=== PATIENT | female | born 1935 | race Caucasian/White ===

== ENCOUNTER 2017-09-28 12:27 | Outpatient (CLI) | payer MEDICARE, OTHER | END 2017-09-28 12:28 | disposition home or self-care (01) | LOC: BICRAD 12:27 | PROVIDERS: ATTEND Internal Medicine Gastroenterology | DX: K59.00 Constipation, unspecified (principal); R14.0 Abdominal distension (gaseous); R63.5 Abnormal weight gain; Z80.0 Family history of malignant neoplasm of digestive organs | CPT/HCPCS: 74019 ==

== ENCOUNTER 2018-03-23 22:48 | Emergency (ER) | payer MEDICARE, OTHER | END 2018-03-23 23:42 | disposition left against medical advice (07) | LOC: ERS 22:48 | DX: Z53.21 Procedure and treatment not carried out due to patient leaving prior to being seen by health care provider (principal) ==

== ENCOUNTER 2020-08-23 10:24 | Outpatient (CLI) | payer MEDICARE, OTHER ==
--- NOTE | 2020-08-23 14:40 | MRI ---
LUMBAR SPINE MRI WITHOUT CONTRAST: 08/23/20 HISTORY: Acute lumbar radiculopathy. Low back pain, radiating down the left and right lower extremity for many months. FINDINGS: Appropriate T1 marrow signal intensity of the lumbar vertebrae. Lumbar spine vertebral body height is maintained. No evidence fracture. No significant STIR hyperintensity to suggest ligamentous injury or vertebral body edema. Appropriate signal intensity of the visualized paraspinal muscles. Multiple T2 hyperintensities in th e left and right renal cortex as well as the left and right renal pelvis suggesting combination of co rtical and parapelvic cysts. Conus medullaris terminates at the mid L1 level. Mild leftward curvature of the lumbar spine is noted . Spondylolisthesis: 2.6 mm of retrolisthesis of L1 upon L2. 1.7 mm of retrolisthesis of L2 upon L3. 1.4 mm of retrolisthesis of L3 upon L4. T12-L1: Disc desiccation with mild loss of disc space height. Broad based disc bulge. Mild central ca nal stenosis. Mild central canal stenosis. Mild to moderate bilateral neural foraminal narrowing. L1-L2: Disc desiccation with moderate loss of disc space height. Broad based disc bulge, ligamentum f lavum thickening, and facet hypertrophy result in moderate central canal stenosis. Moderate to severe right and moderate left neural foraminal narrowing. L2-L3: Disc desiccation with moderate to severe loss of disc space height. Broad based disc bulge, li gamentum flavum thickening, and facet hypertrophy result in mild to moderate central canal stenosis. Moderate right and mild left neural foraminal narrowing. L3-L4: Disc desiccation with mild loss of disc space height. Broad based disc bulge, ligamentum flavu m thickening, and facet hypertrophy result in moderate central canal stenosis. There is right greater than left facet hypertrophy. Small amount of fluid in the right facet joint. Moderate right and mode rate to severe left neural foraminal narrowing. L4-L5: Disc desiccation with mild to moderate loss of disc space height. Broad based disc bulge, liga mentum flavum thickening and facet hypertrophy result in mild central canal stenosis. Mild bilateral neural foraminal narrowing. L5-S1: Disc desiccation with mild loss of disc space height. Broad based disc bulge, ligamentum flavu m thickening and facet hypertrophy result in mild to moderate central canal stenosis. There is fluid in the bilateral facet joints. Moderate bilateral neural foraminal narrowing. IMPRESSION: Multilevel degenerative changes of the lumbar spine as above. POS: [facility]
== END 2020-08-23 10:25 | disposition home or self-care (01) ==
LOC: BICMRI 10:24
PROVIDERS: ATTEND Anesthesiology Pain Medicine
DX: M51.16 Intervertebral disc disorders with radiculopathy, lumbar region (principal); M43.16 Spondylolisthesis, lumbar region; M48.05 Spinal stenosis, thoracolumbar region; M48.061 Spinal stenosis, lumbar region without neurogenic claudication; M24.28 Disorder of ligament, vertebrae; M51.87 Other intervertebral disc disorders, lumbosacral region; M48.07 Spinal stenosis, lumbosacral region
CPT/HCPCS: 72148

== ENCOUNTER 2021-11-10 12:25 | Inpatient (IN) | payer MEDICARE ==
[2021-11-10 12:49] LABS: #Eosinphils 0.1 thou/uL (0.0-0.7); #Lymphocytes 1.3 thou/uL (1.20-3.40); #Monocytes 0.7 thou/uL (0.11-0.59); #Neutrophils 4.5 thou/uL (1.40-6.50); %Basophils 0.4 % (0.0-1.0); %Eosinophils 1.2 % (0.0-10.0); %Lymphocytes 19.8 % (21.0-51.0); %Monocytes 10.9 % (0.0-10.0); %Neutrophils 67.7 % (42.0-75.0); Hemoglobin 12.2 g/dL (12.0-16.0); Mean Corpuscular HGB CONC 32.5 g/dL (32.0-36.0); Mean Corpuscular Hemoglobin 31.6 pg (27.0-31.0); Mean Corpuscular Volume 97.3 fL (78.0-98.0); Mean Platelet Volume 6.8 fL (7.4-10.4); Platelet Count 370 thou/uL (130-400); RBC Distribution Width 15.4 % (11.5-14.5); Red Blood Cell (RBC) Count 3.86 mill/uL (4.20-5.40); White Blood Cell (WBC) Count 6.6 thou/uL (4.8-10.8)
[2021-11-10 13:00] LABS: Bacteria/HPF 4+ HPF (None Seen); Bilirubin Negative (Negative); Blood, Urine Negative (Negative); Clarity Clear (Clear); Glucose, Urine (Dipstick) Normal (Negative); Ketone, Urine Negative (Negative); Leukocyte 250 Leu/uL (Negative); Nitrite Negative (Negative); Protein, Urine (Dipstick) Negative (Neg-Trace); RBC/HPF 0-3 HPF (0-3); Specific Gravity, Urine 1.021 (1.002-1.036); Squamous Epithelial 0-3 HPF (0-3); Urobilinogen Normal mg/dL (Less than 2); WBC/HPF 21-50 HPF (0-3)
[2021-11-10 13:06] LABS: ALT (SGPT) 13 U/L (8-55); AST (SGOT) 21 U/L (5-34); Alkaline Phosphatase 93 U/L (40-110); Anion Gap 16 mmol/L (10-20); BUN (Urea Nitrogen) 28 mg/dL (9.8-20.1); Bilirubin, Total 0.3 mg/dL (0.2-1.2); Calc. Creatinine Clearance 0 mL/min (70-130); Calcium 9.2 mg/dL (7.8-10.44); Carbon Dioxide 19 mmol/L (23-31); Chloride 106 mmol/L (98-107); Globulin 3.2 g/dL (2.4-3.5); Glucose 121 mg/dL (83-110); Lipase 21 U/L (8-78); Magnesium 2.1 mg/dL (1.6-2.6); Potassium 5.3 mmol/L (3.5-5.1); Protein, Total 7.2 g/dL (5.8-8.1); Sodium 136 mmol/L (136-145)
[2021-11-10 13:07] LABS: INR-International Normal Ratio 1.1; PTT 37.9 sec (22.9-36.1); Prothrombin Time 13.8 sec (12.0-14.7)
[2021-11-10 13:27] LABS: Actual Bicarbonate (HCO3a) 23.1 mEq/L (22-28); Analyzer IN Cardio ER; Base Excess (BEa) -1.3 mEq/L (-2.0 to +3.0); CO2 Tension 37.3 mmHg (35.0-45.0); Calcium, Ionized (arterial) 1.17 mmol/L (1.12-1.30); Carboxyhemoglobin (COHb) 0.3 gm% (0.0-3.0); Hemoglobin (Hb) 11.6 g/dL (12.0-16.0); O2 Tension (PaO2), arterial 173.8 mmHg (> 60.0); Potassium - ABG Lab 5.03 mmol/L (3.70-5.30); pH, Arterial 7.41 (7.35-7.45)
[2021-11-10 13:29] LABS: ALV-art Gradient 207.375 mmHg (0-20); Puncture Site RRA
[2021-11-10 13:36] LABS: SARS-CoV-2 NAA Rapid Test Not Detected (NotDetected)
[2021-11-10] MEDS ORDERED: Piperacillin/Tazobactam 3.375 GM VIAL ONE (13:48)
[2021-11-10] MEDS ORDERED: niCARdipine 25 MG/10 ML VIAL ONE (13:49)
[2021-11-10] MEDS ORDERED: Lorazepam 2 MG/ML VIAL ONE (14:05)
[2021-11-10] MEDS ORDERED: Propofol 1,000 MG/100 ML VIAL IV ONE ×2 (14:11→15:25)
[2021-11-10] MEDS ORDERED: Vancomycin 1 GM/200 ML BAG ONE (14:26)
[2021-11-10] MEDS ORDERED: Ondansetron PF 4 MG/2 ML Vial IVP PRN (14:43)
[2021-11-10] MEDS ORDERED: Midazolam In 0.9 % NaCl/PF 100 ML IVPB SCH (14:45)
[2021-11-10] MEDS ORDERED: Ventilator Sedation Protocol 1 EACH FS SCH (14:45)
[2021-11-10] MEDS ORDERED: Norepinephrine 8 MG/0.9% NS 250 ML IVPB PRN (14:57)
[2021-11-10] MEDS ORDERED: Sodium Chloride 0.9% 500 ML IV SCH ×2 (15:00→16:15)
[2021-11-10] MEDS ORDERED: Acetaminophen 650 MG Suppository PR PRN (15:36)
[2021-11-10] MEDS: Sodium Chloride 0.9% 1,000 ML IV SCH ×2 (15:37→22:50)
[2021-11-10] MEDS ORDERED: Morphine 4 MG/ML VIAL SLOW IVP PRN (15:45)
[2021-11-10] MEDS ORDERED: Fentanyl BOLUS 250 ML IVPB PRN (15:45)
[2021-11-10] MEDS ORDERED: DISCONTINUE PREVIOUS NARCOTIC PAIN MEDICATIONS AND BENZODIAZEPINES FS SCH (15:45)
[2021-11-10] MEDS ORDERED: Propofol BOLUS 1,000 MG/100 ML VIAL IV PRN (15:45)
[2021-11-10] MEDS ORDERED: Lorazepam 2 MG/ML VIAL SLOW IVP PRN (15:45)
[2021-11-10] MEDS ORDERED: Piperacillin/Tazobactam 3.375 GM in Sodium Chloride 0.9% 100 ML IVPB SCH (18:00)
[2021-11-10] MEDS: Piperacillin/Tazobactam 3.375 GM in Sodium Chloride 0.9% 100 ML IVPB SCH (18:16)
[2021-11-10] MEDS ORDERED: Famotidine 40 MG/5 ML Oral Suspension PER TUBE SCH (21:00)
[2021-11-11] MEDS: Piperacillin/Tazobactam 3.375 GM in Sodium Chloride 0.9% 100 ML IVPB SCH (01:23)
[2021-11-11 05:08] LABS: #Eosinphils 0.2 thou/uL (0.0-0.7); #Lymphocytes 1.1 thou/uL (1.20-3.40); #Monocytes 1.2 thou/uL (0.11-0.59); #Neutrophils 8.6 thou/uL (1.40-6.50); %Basophils 0.4 % (0.0-1.0); %Eosinophils 1.4 % (0.0-10.0); %Lymphocytes 9.7 % (21.0-51.0); %Monocytes 10.6 % (0.0-10.0); %Neutrophils 77.8 % (42.0-75.0); Hemoglobin 10.7 g/dL (12.0-16.0); Mean Corpuscular HGB CONC 32.6 g/dL (32.0-36.0); Mean Corpuscular Hemoglobin 31.8 pg (27.0-31.0); Mean Corpuscular Volume 97.5 fL (78.0-98.0); Mean Platelet Volume 6.6 fL (7.4-10.4); Platelet Count 355 thou/uL (130-400); RBC Distribution Width 15.3 % (11.5-14.5); Red Blood Cell (RBC) Count 3.37 mill/uL (4.20-5.40)
[2021-11-11 05:33] LABS: Anion Gap 16 mmol/L (10-20); BUN (Urea Nitrogen) 20 mg/dL (9.8-20.1); Calc. Creatinine Clearance 39 mL/min (70-130); Calcium 8.3 mg/dL (7.8-10.44); Carbon Dioxide 16 mmol/L (23-31); Chloride 109 mmol/L (98-107); Glucose 110 mg/dL (83-110); Potassium 5.1 mmol/L (3.5-5.1); Sodium 136 mmol/L (136-145)
[2021-11-11 07:48] LABS: Actual Bicarbonate (HCO3a) 19.9 mEq/L (22-28); Base Excess (BEa) -3.1 mEq/L (-2.0 to +3.0); CO2 Tension 28.5 mmHg (35.0-45.0); Calcium, Ionized (arterial) 1.08 mmol/L (1.12-1.30); Carboxyhemoglobin (COHb) 0.3 gm% (0.0-3.0); Hemoglobin (Hb) 9.3 g/dL (12.0-16.0); O2 Tension (PaO2), arterial 123.9 mmHg (> 60.0); Potassium - ABG Lab 4.06 mmol/L (3.70-5.30); pH, Arterial 7.46 (7.35-7.45)
[2021-11-11 07:49] LABS: Puncture Site LRA
[2021-11-11 07:50] LABS: ALV-art Gradient 125.675 mmHg (0-20)
[2021-11-11] MEDS: Azithromycin 500 MG in Sodium Chloride 0.9% 250 ML 250 ML IVPB SCH (08:48)
[2021-11-11] MEDS: Propofol 1,000 MG/100 ML VIAL IV PRN ×2 (09:00→19:36)
[2021-11-11] MEDS: Aspirin Chewable 81 MG TAB PER TUBE SCH (09:50)
[2021-11-11] MEDS: Cefepime 2 GM in Sodium Chloride 0.9% 100 ML IVPB SCH ×2 (09:50→20:16)
[2021-11-11] MEDS: Escitalopram Oxalate 10 mg Tablet PO SCH (09:51)
[2021-11-11] MEDS: Enoxaparin Sodium 40 MG/0.4 ML SYRINGE SC SCH (09:51)
[2021-11-11] MEDS: Sodium Chloride 0.9% 1,000 ML IV SCH (18:04)
[2021-11-11] MEDS: fentaNYL Citrate-0.9 % NaCl/PF 100 ML IVPB SCH (19:36)
[2021-11-11] MEDS: Famotidine 40 MG/5 ML Oral Suspension PER TUBE SCH (20:58)
[2021-11-12 04:08] LABS: #Eosinphils 0.1 thou/uL (0.0-0.7); #Lymphocytes 0.9 thou/uL (1.20-3.40); #Monocytes 0.6 thou/uL (0.11-0.59); #Neutrophils 6.5 thou/uL (1.40-6.50); %Eosinophils 1.8 % (0.0-10.0); %Lymphocytes 10.8 % (21.0-51.0); %Monocytes 6.8 % (0.0-10.0); %Neutrophils 80.6 % (42.0-75.0); Hemoglobin 8.8 g/dL (12.0-16.0); Mean Corpuscular HGB CONC 33.2 g/dL (32.0-36.0); Mean Corpuscular Hemoglobin 32.2 pg (27.0-31.0); Mean Corpuscular Volume 97.1 fL (78.0-98.0); Mean Platelet Volume 6.5 fL (7.4-10.4); Platelet Count 287 thou/uL (130-400); RBC Distribution Width 14.9 % (11.5-14.5); Red Blood Cell (RBC) Count 2.73 mill/uL (4.20-5.40); White Blood Cell (WBC) Count 8.1 thou/uL (4.8-10.8)
[2021-11-12] MEDS: Sodium Chloride 0.9% 1,000 ML IV SCH ×3 (04:09→13:25)
[2021-11-12] MEDS: Propofol 1,000 MG/100 ML VIAL IV PRN (04:11)
[2021-11-12 04:27] LABS: Anion Gap 10 mmol/L (10-20); BUN (Urea Nitrogen) 15 mg/dL (9.8-20.1); Calc. Creatinine Clearance 42 mL/min (70-130); Calcium 7.9 mg/dL (7.8-10.44); Carbon Dioxide 19 mmol/L (23-31); Chloride 114 mmol/L (98-107); Glucose 129 mg/dL (83-110); Potassium 3.4 mmol/L (3.5-5.1); Sodium 140 mmol/L (136-145)
[2021-11-12] MEDS ORDERED: Sodium Bicarbonate Tab 325 MG TAB PER TUBE PRN (06:30)
[2021-11-12] MEDS ORDERED: Pancrelipase DR 12,000 1 CAP FS PRN (06:30)
[2021-11-12] MEDS: Azithromycin 500 MG in Sodium Chloride 0.9% 250 ML 250 ML IVPB SCH (09:19)
[2021-11-12] MEDS: Enoxaparin Sodium 40 MG/0.4 ML SYRINGE SC SCH (09:37)
[2021-11-12] MEDS: Escitalopram Oxalate 10 mg Tablet PO SCH (09:37)
[2021-11-12] MEDS: Aspirin Chewable 81 MG TAB PER TUBE SCH (09:37)
[2021-11-12] MEDS: Cefepime 2 GM in Sodium Chloride 0.9% 100 ML IVPB SCH (09:37)
[2021-11-12] MEDS: Famotidine 40 MG/5 ML Oral Suspension PER TUBE SCH (20:40)
[2021-11-13] MEDS: Sodium Chloride 0.9% 1,000 ML IV SCH ×2 (00:12→14:33)
[2021-11-13 04:25] LABS: Hemoglobin 8.4 g/dL (12.0-16.0); Mean Corpuscular HGB CONC 32.8 g/dL (32.0-36.0); Mean Corpuscular Hemoglobin 32.2 pg (27.0-31.0); Mean Corpuscular Volume 98.4 fL (78.0-98.0); Mean Platelet Volume 7.3 fL (7.4-10.4); Platelet Count 249 thou/uL (130-400); Red Blood Cell (RBC) Count 2.62 mill/uL (4.20-5.40); White Blood Cell (WBC) Count 7.6 thou/uL (4.8-10.8)
[2021-11-13 05:00] LABS: Anion Gap 13 mmol/L (10-20); BUN (Urea Nitrogen) 19 mg/dL (9.8-20.1); Calc. Creatinine Clearance 45 mL/min (70-130); Calcium 7.7 mg/dL (7.8-10.44); Carbon Dioxide 16 mmol/L (23-31); Chloride 115 mmol/L (98-107); Glucose 112 mg/dL (83-110); Potassium 4.2 mmol/L (3.5-5.1); Sodium 140 mmol/L (136-145)
[2021-11-13 05:29] LABS: Band 1 % (5-11); Eosinophils 3 % (0-10); Lymphocytes 12 % (21-51); MDiff Complete? YES; Monocytes 6 % (0-10); Neutrophil 78 % (42-75)
[2021-11-13] MEDS: Aspirin Chewable 81 MG TAB PER TUBE SCH (08:46)
[2021-11-13] MEDS: Escitalopram Oxalate 10 mg Tablet PO SCH (08:46)
[2021-11-13] MEDS: Enoxaparin Sodium 40 MG/0.4 ML SYRINGE SC SCH (08:46)
[2021-11-13] MEDS: cefTRIAXone\\ROCEPHIN 1 GM in Sodium Chloride 0.9% 100 ML IVPB SCH (08:46)
[2021-11-13] MEDS: fentaNYL Citrate-0.9 % NaCl/PF 100 ML IVPB SCH (18:27)
[2021-11-13] MEDS ORDERED: Dextrose 5 %-0.45 % NaCl 1,000 ML IV SCH (20:15)
[2021-11-13] MEDS: Famotidine 40 MG/5 ML Oral Suspension PER TUBE SCH (20:25)
[2021-11-14 04:25] LABS: #Eosinphils 0.2 thou/uL (0.0-0.7); #Lymphocytes 0.7 thou/uL (1.20-3.40); #Monocytes 0.7 thou/uL (0.11-0.59); #Neutrophils 6.2 thou/uL (1.40-6.50); %Basophils 0.3 % (0.0-1.0); %Lymphocytes 8.6 % (21.0-51.0); %Monocytes 9.1 % (0.0-10.0); %Neutrophils 79.2 % (42.0-75.0); Hemoglobin 8.3 g/dL (12.0-16.0); Mean Corpuscular HGB CONC 31.8 g/dL (32.0-36.0); Mean Corpuscular Hemoglobin 31.4 pg (27.0-31.0); Mean Corpuscular Volume 98.6 fL (78.0-98.0); Platelet Count 279 thou/uL (130-400); RBC Distribution Width 14.8 % (11.5-14.5); Red Blood Cell (RBC) Count 2.64 mill/uL (4.20-5.40); White Blood Cell (WBC) Count 7.9 thou/uL (4.8-10.8)
[2021-11-14 04:47] LABS: Anion Gap 14 mmol/L (10-20); BUN (Urea Nitrogen) 25 mg/dL (9.8-20.1); Calc. Creatinine Clearance 49 mL/min (70-130); Calcium 7.9 mg/dL (7.8-10.44); Carbon Dioxide 17 mmol/L (23-31); Chloride 111 mmol/L (98-107); Glucose 128 mg/dL (83-110); Potassium 3.7 mmol/L (3.5-5.1); Sodium 138 mmol/L (136-145)
[2021-11-14 07:23] LABS: Actual Bicarbonate (HCO3a) 17.6 mEq/L (22-28); Base Excess (BEa) -6.1 mEq/L (-2.0 to +3.0); CO2 Tension 28.7 mmHg (35.0-45.0); Calcium, Ionized (arterial) 1.13 mmol/L (1.12-1.30); Carboxyhemoglobin (COHb) 0.4 gm% (0.0-3.0); Hemoglobin (Hb) 9.7 g/dL (12.0-16.0); O2 Tension (PaO2), arterial 75.3 mmHg (> 60.0); Potassium - ABG Lab 3.99 mmol/L (3.70-5.30); pH, Arterial 7.41 (7.35-7.45)
[2021-11-14 07:36] LABS: Puncture Site RBA
[2021-11-14 07:37] LABS: ALV-art Gradient 102.725 mmHg (0-20)
[2021-11-14] MEDS ORDERED: Furosemide 40 MG/4 ML VIAL SLOW IVP SCH (08:30)
[2021-11-14] MEDS: Enoxaparin Sodium 40 MG/0.4 ML SYRINGE SC SCH (08:53)
[2021-11-14] MEDS: Escitalopram Oxalate 10 mg Tablet PO SCH (08:53)
[2021-11-14] MEDS: Aspirin Chewable 81 MG TAB PER TUBE SCH (08:53)
[2021-11-14] MEDS: cefTRIAXone\\ROCEPHIN 1 GM in Sodium Chloride 0.9% 100 ML IVPB SCH (08:54)
[2021-11-14] MEDS ORDERED: Dexamethasone 10 MG/ML VIAL SLOW IVP SCH (12:54)
[2021-11-14] MEDS: Dexamethasone 4 mg/ml Vial ONE ×2 (13:00→14:51)
[2021-11-14] MEDS ORDERED: Racepinephrine 2.25% 0.5 ML NEB NEB PRN (14:53)
[2021-11-14] MEDS: Famotidine 40 MG/5 ML Oral Suspension PER TUBE SCH (19:24)
[2021-11-14] MEDS: Lorazepam 2 MG/ML VIAL SLOW IVP PRN (19:27)
[2021-11-15] MEDS: Lorazepam 2 MG/ML VIAL SLOW IVP PRN ×2 (02:55→20:15)
[2021-11-15 06:38] LABS: Anion Gap 13 mmol/L (10-20); BUN (Urea Nitrogen) 31 mg/dL (9.8-20.1); Calc. Creatinine Clearance 56 mL/min (70-130); Calcium 8.5 mg/dL (7.8-10.44); Carbon Dioxide 20 mmol/L (23-31); Chloride 107 mmol/L (98-107); Glucose 146 mg/dL (83-110); Potassium 4.2 mmol/L (3.5-5.1); Sodium 136 mmol/L (136-145)
[2021-11-15] MEDS: Sodium Chloride 0.9% 1,000 ML IV SCH (07:49)
[2021-11-15] MEDS: cefTRIAXone\\ROCEPHIN 1 GM in Sodium Chloride 0.9% 100 ML IVPB SCH (08:01)
[2021-11-15] MEDS: Enoxaparin Sodium 40 MG/0.4 ML SYRINGE SC SCH (08:01)
[2021-11-15] MEDS: Escitalopram Oxalate 10 mg Tablet PO SCH (08:14)
[2021-11-15] MEDS: Aspirin Chewable 81 MG TAB PER TUBE SCH (08:14)
[2021-11-15] MEDS ORDERED: Labetalol HCl 100 MG/20 ML VIAL SLOW IVP SCH (12:30)
[2021-11-15] MEDS ORDERED: cloNIDine 0.1mg/24 Hour PATCH TD SCH (13:30)
[2021-11-15] MEDS: Nitroglycerin 2% Ointment 1 INCH/1 GM Packet TOP SCH ×2 (13:36→21:15)
[2021-11-15] MEDS: Famotidine 40 MG/5 ML Oral Suspension PER TUBE SCH (20:18)
[2021-11-15] MEDS ORDERED: Scopolamine 1.5 mg/72 hour Patch TD SCH (21:00)
[2021-11-15] MEDS: Labetalol HCl 100 MG/20 ML VIAL SLOW IVP PRN (21:15)
[2021-11-16] MEDS: Labetalol HCl 100 MG/20 ML VIAL SLOW IVP PRN ×5 (01:55→21:23)
[2021-11-16] MEDS: Sodium Chloride 0.9% 1,000 ML IV SCH (01:59)
[2021-11-16] MEDS: Nitroglycerin 2% Ointment 1 INCH/1 GM Packet TOP SCH ×3 (06:06→21:23)
[2021-11-16 07:28] LABS: #Eosinphils 0.1 thou/uL (0.0-0.7); #Lymphocytes 1.1 thou/uL (1.20-3.40); #Monocytes 0.9 thou/uL (0.11-0.59); #Neutrophils 8.3 thou/uL (1.40-6.50); %Basophils 0.3 % (0.0-1.0); %Eosinophils 0.5 % (0.0-10.0); %Lymphocytes 10.3 % (21.0-51.0); %Monocytes 8.2 % (0.0-10.0); %Neutrophils 80.7 % (42.0-75.0); Hemoglobin 9.3 g/dL (12.0-16.0); Mean Corpuscular HGB CONC 33.9 g/dL (32.0-36.0); Mean Corpuscular Hemoglobin 32.4 pg (27.0-31.0); Mean Corpuscular Volume 95.8 fL (78.0-98.0); Platelet Count 348 thou/uL (130-400); RBC Distribution Width 14.8 % (11.5-14.5); Red Blood Cell (RBC) Count 2.88 mill/uL (4.20-5.40); White Blood Cell (WBC) Count 10.3 thou/uL (4.8-10.8)
[2021-11-16 07:42] LABS: Anion Gap 14 mmol/L (10-20); BUN (Urea Nitrogen) 29 mg/dL (9.8-20.1); Calc. Creatinine Clearance 52 mL/min (70-130); Calcium 8.8 mg/dL (7.8-10.44); Carbon Dioxide 21 mmol/L (23-31); Chloride 111 mmol/L (98-107); Glucose 114 mg/dL (83-110); Potassium 3.8 mmol/L (3.5-5.1); Sodium 142 mmol/L (136-145)
[2021-11-16] MEDS: cefTRIAXone\\ROCEPHIN 1 GM in Sodium Chloride 0.9% 100 ML IVPB SCH (07:46)
[2021-11-16] MEDS: Enoxaparin Sodium 40 MG/0.4 ML SYRINGE SC SCH (07:47)
[2021-11-16] MEDS: Aspirin Chewable 81 MG TAB PER TUBE SCH (07:47)
[2021-11-16] MEDS: Escitalopram Oxalate 10 mg Tablet PO SCH (07:47)
[2021-11-16] MEDS: Lidocaine 5% Patch TD SCH (10:34)
[2021-11-16] MEDS: Transdermal Patch Removal TOP SCH (21:23)
[2021-11-16 21:35] LABS: SARS-CoV-2 PCR by NAA Not Detected (NotDetected)
[2021-11-17] MEDS: Sodium Chloride 0.9% 1,000 ML IV SCH (02:01)
[2021-11-17] MEDS: Labetalol HCl 100 MG/20 ML VIAL SLOW IVP PRN ×2 (02:01→05:37)
[2021-11-17] MEDS: Lorazepam 2 MG/ML VIAL SLOW IVP PRN (02:02)
[2021-11-17] MEDS: Nitroglycerin 2% Ointment 1 INCH/1 GM Packet TOP SCH ×3 (05:36→22:03)
[2021-11-17] MEDS: Aspirin Chewable 81 MG TAB PER TUBE SCH (07:24)
[2021-11-17] MEDS: Escitalopram Oxalate 10 mg Tablet PO SCH (07:24)
[2021-11-17 07:37] LABS: Anion Gap 14 mmol/L (10-20); BUN (Urea Nitrogen) 25 mg/dL (9.8-20.1); Calc. Creatinine Clearance 57 mL/min (70-130); Calcium 8.8 mg/dL (7.8-10.44); Carbon Dioxide 24 mmol/L (23-31); Chloride 109 mmol/L (98-107); Glucose 102 mg/dL (83-110); Potassium 3.7 mmol/L (3.5-5.1); Sodium 143 mmol/L (136-145)
[2021-11-17] MEDS: cefTRIAXone\\ROCEPHIN 1 GM in Sodium Chloride 0.9% 100 ML IVPB SCH (08:28)
[2021-11-17] MEDS: Lidocaine 5% Patch TD SCH (08:28)
[2021-11-17] MEDS: Enoxaparin Sodium 40 MG/0.4 ML SYRINGE SC SCH (08:29)
[2021-11-17] MEDS ORDERED: Pantoprazole 40 MG VIAL IVP SCH (09:00)
[2021-11-17] MEDS ORDERED: Acetaminophen 325 MG TAB PO PRN (13:48)
[2021-11-17] MEDS ORDERED: Lorazepam 2 MG/ML VIAL SLOW IVP PRN (14:35)
[2021-11-17] MEDS ORDERED: Acetaminophen 650 MG/20.3 ML UDCUP PER TUBE PRN (14:41)
[2021-11-17] MEDS ORDERED: Lisinopril 10 MG TAB PER TUBE ONE (21:30)
[2021-11-17] MEDS: Transdermal Patch Removal TOP SCH (22:03)
[2021-11-17] MEDS: cloNIDine 0.1 MG TAB PO PRN (22:04)
[2021-11-18] MEDS: Nitroglycerin 2% Ointment 1 INCH/1 GM Packet TOP SCH ×3 (06:32→21:43)
[2021-11-18] MEDS: cloNIDine 0.1 MG TAB PO PRN (06:33)
[2021-11-18 07:24] LABS: Anion Gap 12 mmol/L (10-20); BUN (Urea Nitrogen) 23 mg/dL (9.8-20.1); Calc. Creatinine Clearance 58 mL/min (70-130); Calcium 8.7 mg/dL (7.8-10.44); Carbon Dioxide 26 mmol/L (23-31); Chloride 105 mmol/L (98-107); Glucose 126 mg/dL (83-110); Potassium 3.5 mmol/L (3.5-5.1); Sodium 139 mmol/L (136-145)
[2021-11-18] MEDS: Aspirin Chewable 81 MG TAB PER TUBE SCH ×2 (09:05→16:22)
[2021-11-18] MEDS: Escitalopram Oxalate 10 mg Tablet PO SCH ×2 (09:05→16:23)
[2021-11-18] MEDS: Enoxaparin Sodium 40 MG/0.4 ML SYRINGE SC SCH (09:05)
[2021-11-18] MEDS ORDERED: Scopolamine 1.5 mg/72 hour Patch TD SCH (21:00)
[2021-11-18] MEDS: Transdermal Patch Removal TOP SCH (21:57)
[2021-11-19] MEDS ORDERED: cloNIDine 0.1mg/24 Hour PATCH TD SCH (03:00)
[2021-11-19] MEDS: Nitroglycerin 2% Ointment 1 INCH/1 GM Packet TOP SCH ×3 (04:31→22:39)
[2021-11-19 06:50] LABS: Anion Gap 15 mmol/L (10-20); BUN (Urea Nitrogen) 18 mg/dL (9.8-20.1); Calc. Creatinine Clearance 54 mL/min (70-130); Calcium 9.3 mg/dL (7.8-10.44); Carbon Dioxide 26 mmol/L (23-31); Chloride 103 mmol/L (98-107); Glucose 108 mg/dL (83-110); Potassium 3.5 mmol/L (3.5-5.1); Sodium 140 mmol/L (136-145)
[2021-11-19] MEDS: Enoxaparin Sodium 40 MG/0.4 ML SYRINGE SC SCH (08:43)
[2021-11-19] MEDS ORDERED: Non-Formulary Item 1 EACH (Mv-Min/Iron/Folic/Calcium/Vitk [Women's Multivitamin Tablet] 1 PO SCH (09:00)
[2021-11-19] MEDS ORDERED: Non-Formulary Item 1 EACH (Mecobalamin [B12 Active] 1,000 MCG Tab.Chew) PO SCH (09:00)
[2021-11-19] MEDS: Lisinopril 5 MG TAB PO SCH (10:20)
[2021-11-19] MEDS: Multivitamin W/ Minerals 1 TAB PO SCH (10:20)
[2021-11-19] MEDS: Metoprolol Tartrate 25 MG TAB PO SCH ×2 (10:20→22:40)
[2021-11-19] MEDS: Escitalopram Oxalate 10 mg Tablet PO SCH ×2 (10:20→22:40)
[2021-11-19] MEDS: Cyanocobalamin (Vitamin B-12) 1,000 MCG TAB PO SCH (10:20)
[2021-11-19] MEDS: Aspirin 81 mg Enteric Coated Tablet PO SCH (10:20)
[2021-11-19] MEDS ORDERED: Acetaminophen 650 MG/20.3 ML UDCUP PO PRN (16:41)
[2021-11-19] MEDS: Acetaminophen 325 MG TAB PO PRN (17:00)
[2021-11-20] MEDS: Transdermal Patch Removal TOP SCH ×2 (00:10→20:57)
[2021-11-20] MEDS: Nitroglycerin 2% Ointment 1 INCH/1 GM Packet TOP SCH ×3 (05:15→20:42)
[2021-11-20 06:21] LABS: Anion Gap 16 mmol/L (10-20); BUN (Urea Nitrogen) 18 mg/dL (9.8-20.1); Calc. Creatinine Clearance 56 mL/min (70-130); Calcium 9.2 mg/dL (7.8-10.44); Carbon Dioxide 29 mmol/L (23-31); Chloride 101 mmol/L (98-107); Glucose 111 mg/dL (83-110); Potassium 3.5 mmol/L (3.5-5.1); Sodium 142 mmol/L (136-145)
[2021-11-20] MEDS: Lisinopril 5 MG TAB PO SCH (10:21)
[2021-11-20] MEDS: Metoprolol Tartrate 25 MG TAB PO SCH ×2 (10:21→20:27)
[2021-11-20] MEDS: Aspirin 81 mg Enteric Coated Tablet PO SCH (10:22)
[2021-11-20] MEDS: Escitalopram Oxalate 10 mg Tablet PO SCH ×2 (10:22→20:27)
[2021-11-20] MEDS: Enoxaparin Sodium 40 MG/0.4 ML SYRINGE SC SCH (10:22)
[2021-11-20] MEDS: Cyanocobalamin (Vitamin B-12) 1,000 MCG TAB PO SCH (11:06)
[2021-11-20] MEDS: Multivitamin W/ Minerals 1 TAB PO SCH (11:07)
[2021-11-20] MEDS: Acetaminophen 325 MG TAB PO PRN (20:41)
[2021-11-21] MEDS: Nitroglycerin 2% Ointment 1 INCH/1 GM Packet TOP SCH ×3 (05:29→20:53)
[2021-11-21 06:00] LABS: Anion Gap 19 mmol/L (10-20); BUN (Urea Nitrogen) 29 mg/dL (9.8-20.1); Calc. Creatinine Clearance 39 mL/min (70-130); Carbon Dioxide 24 mmol/L (23-31); Chloride 102 mmol/L (98-107); Glucose 87 mg/dL (83-110); Potassium 4.6 mmol/L (3.5-5.1); Sodium 140 mmol/L (136-145)
[2021-11-21] MEDS: Aspirin 81 mg Enteric Coated Tablet PO SCH (09:21)
[2021-11-21] MEDS: Escitalopram Oxalate 10 mg Tablet PO SCH ×2 (09:21→20:52)
[2021-11-21] MEDS: Metoprolol Tartrate 25 MG TAB PO SCH ×2 (09:21→20:52)
[2021-11-21] MEDS: Cyanocobalamin (Vitamin B-12) 1,000 MCG TAB PO SCH (09:21)
[2021-11-21] MEDS: Enoxaparin Sodium 40 MG/0.4 ML SYRINGE SC SCH (09:22)
[2021-11-21] MEDS: Multivitamin W/ Minerals 1 TAB PO SCH (09:22)
[2021-11-21] MEDS: Dextrose 5 %-0.45 % NaCl 1,000 ML IV SCH ×2 (11:11→23:00)
[2021-11-21] MEDS: Transdermal Patch Removal TOP SCH (23:00)
[2021-11-22] MEDS: Nitroglycerin 2% Ointment 1 INCH/1 GM Packet TOP SCH ×3 (06:12→21:08)
[2021-11-22 07:04] LABS: Anion Gap 16 mmol/L (10-20); BUN (Urea Nitrogen) 22 mg/dL (9.8-20.1); Calc. Creatinine Clearance 41 mL/min (70-130); Calcium 8.8 mg/dL (7.8-10.44); Carbon Dioxide 25 mmol/L (23-31); Chloride 102 mmol/L (98-107); Glucose 124 mg/dL (83-110); Potassium 3.7 mmol/L (3.5-5.1); Sodium 139 mmol/L (136-145)
[2021-11-22] MEDS ORDERED: cloNIDine 0.1mg/24 Hour PATCH TD SCH (09:00)
[2021-11-22] MEDS: Aspirin 81 mg Enteric Coated Tablet PO SCH (09:04)
[2021-11-22] MEDS: Enoxaparin Sodium 40 MG/0.4 ML SYRINGE SC SCH (09:04)
[2021-11-22] MEDS: Escitalopram Oxalate 10 mg Tablet PO SCH ×2 (09:04→21:07)
[2021-11-22] MEDS: Cyanocobalamin (Vitamin B-12) 1,000 MCG TAB PO SCH (09:04)
[2021-11-22] MEDS: Multivitamin W/ Minerals 1 TAB PO SCH (09:04)
[2021-11-22] MEDS: Metoprolol Tartrate 25 MG TAB PO SCH ×2 (09:04→21:07)
[2021-11-22] MEDS: Dextrose 5 %-0.45 % NaCl 1,000 ML IV SCH ×2 (12:57→23:18)
[2021-11-22] MEDS: Transdermal Patch Removal TOP SCH (22:18)
[2021-11-23] MEDS: Melatonin 3 MG TAB PO PRN ×2 (00:26→21:21)
[2021-11-23] MEDS: Nitroglycerin 2% Ointment 1 INCH/1 GM Packet TOP SCH ×3 (05:10→21:32)
[2021-11-23 07:36] LABS: Anion Gap 15 mmol/L (10-20); BUN (Urea Nitrogen) 15 mg/dL (9.8-20.1); Calc. Creatinine Clearance 48 mL/min (70-130); Calcium 9.1 mg/dL (7.8-10.44); Carbon Dioxide 26 mmol/L (23-31); Chloride 103 mmol/L (98-107); Glucose 119 mg/dL (83-110); Potassium 3.2 mmol/L (3.5-5.1); Sodium 141 mmol/L (136-145)
[2021-11-23] MEDS: Cyanocobalamin (Vitamin B-12) 1,000 MCG TAB PO SCH (09:23)
[2021-11-23] MEDS: Enoxaparin Sodium 40 MG/0.4 ML SYRINGE SC SCH (09:24)
[2021-11-23] MEDS: Metoprolol Tartrate 25 MG TAB PO SCH (09:24)
[2021-11-23] MEDS: Multivitamin W/ Minerals 1 TAB PO SCH (09:24)
[2021-11-23] MEDS: Escitalopram Oxalate 10 mg Tablet PO SCH ×2 (09:24→21:22)
[2021-11-23] MEDS: Aspirin Chewable 81 MG TAB PO SCH (09:34)
[2021-11-23] MEDS: Aspirin 81 mg Enteric Coated Tablet PO SCH (09:39)
[2021-11-23] MEDS ORDERED: hydrALAZINE 25 MG TAB PO SCH ×2 (10:15→15:00)
[2021-11-23] MEDS: Dextrose 5 %-0.45 % NaCl 1,000 ML IV SCH (10:40)
[2021-11-23 16:07] LABS: SARS-CoV-2 PCR by NAA Not Detected (NotDetected)
[2021-11-23] MEDS ORDERED: Dextrose 5 %-0.45 % NaCl 1,000 ML IV SCH (17:00)
[2021-11-23] MEDS ORDERED: Potassium Chloride 20 MEQ in Premix Bag 1 BAG IVPB SCH (17:00)
[2021-11-23] MEDS ORDERED: Amlodipine 10 MG TAB PO SCH (17:00)
[2021-11-23] MEDS ORDERED: Potassium Chloride 20 MEQ TAB PO SCH (17:00)
[2021-11-23] MEDS ORDERED: Metoprolol Tartrate 50 MG TAB PO SCH (21:00)
[2021-11-23] MEDS: hydrALAZINE 25 MG TAB PO SCH (21:21)
[2021-11-23] MEDS: Acetaminophen 325 MG TAB PO PRN (21:22)
[2021-11-23] MEDS: Transdermal Patch Removal TOP SCH (21:24)
[2021-11-24] MEDS: Nitroglycerin 2% Ointment 1 INCH/1 GM Packet TOP SCH ×3 (05:42→20:37)
[2021-11-24 06:04] LABS: Anion Gap 14 mmol/L (10-20); BUN (Urea Nitrogen) 14 mg/dL (9.8-20.1); Calc. Creatinine Clearance 46 mL/min (70-130); Calcium 8.7 mg/dL (7.8-10.44); Carbon Dioxide 26 mmol/L (23-31); Chloride 104 mmol/L (98-107); Glucose 115 mg/dL (83-110); Magnesium 1.7 mg/dL (1.6-2.6); Potassium 3.8 mmol/L (3.5-5.1); Sodium 140 mmol/L (136-145)
[2021-11-24] MEDS: Metoprolol Tartrate 50 MG TAB PO SCH ×2 (08:55→20:30)
[2021-11-24] MEDS: Enoxaparin Sodium 40 MG/0.4 ML SYRINGE SC SCH (08:56)
[2021-11-24] MEDS: Escitalopram Oxalate 10 mg Tablet PO SCH ×2 (08:56→20:31)
[2021-11-24] MEDS: Multivitamin W/ Minerals 1 TAB PO SCH (08:56)
[2021-11-24] MEDS: Aspirin Chewable 81 MG TAB PO SCH (08:56)
[2021-11-24] MEDS: Cyanocobalamin (Vitamin B-12) 1,000 MCG TAB PO SCH (08:56)
[2021-11-24] MEDS: hydrALAZINE 25 MG TAB PO SCH ×3 (08:56→20:30)
[2021-11-24] MEDS: Lansoprazole 3 MG/ML ORAL SUSPENSION PER TUBE SCH (11:59)
[2021-11-24] MEDS: Melatonin 3 MG TAB PO PRN (20:31)
[2021-11-24] MEDS: Transdermal Patch Removal TOP SCH (20:41)
[2021-11-25] MEDS: Nitroglycerin 2% Ointment 1 INCH/1 GM Packet TOP SCH ×3 (05:16→20:54)
[2021-11-25 06:41] LABS: Anion Gap 14 mmol/L (10-20); BUN (Urea Nitrogen) 16 mg/dL (9.8-20.1); Calc. Creatinine Clearance 44 mL/min (70-130); Carbon Dioxide 27 mmol/L (23-31); Chloride 104 mmol/L (98-107); Glucose 114 mg/dL (83-110); Potassium 3.6 mmol/L (3.5-5.1); Sodium 141 mmol/L (136-145)
[2021-11-25] MEDS: hydrALAZINE 25 MG TAB PO SCH ×3 (08:02→20:53)
[2021-11-25] MEDS: Escitalopram Oxalate 10 mg Tablet PO SCH ×2 (08:03→20:53)
[2021-11-25] MEDS: Multivitamin W/ Minerals 1 TAB PO SCH (08:03)
[2021-11-25] MEDS: Cyanocobalamin (Vitamin B-12) 1,000 MCG TAB PO SCH (08:03)
[2021-11-25] MEDS: Metoprolol Tartrate 50 MG TAB PO SCH ×2 (08:03→20:53)
[2021-11-25] MEDS: Aspirin Chewable 81 MG TAB PO SCH (08:03)
[2021-11-25] MEDS: Lansoprazole 3 MG/ML ORAL SUSPENSION PER TUBE SCH (08:03)
[2021-11-25] MEDS: Enoxaparin Sodium 40 MG/0.4 ML SYRINGE SC SCH (08:04)
[2021-11-25] MEDS ORDERED: NIFEdipine XL 60 MG TAB PO SCH (12:45)
[2021-11-25] MEDS ORDERED: Amlodipine 10 MG TAB PO SCH (16:45)
[2021-11-25] MEDS: Transdermal Patch Removal TOP SCH (20:54)
[2021-11-26] MEDS: Nitroglycerin 2% Ointment 1 INCH/1 GM Packet TOP SCH ×3 (05:04→21:23)
[2021-11-26 06:13] LABS: Hemoglobin 9.5 g/dL (12.0-16.0); Platelet Count 562 thou/uL (130-400)
[2021-11-26 06:41] LABS: Anion Gap 16 mmol/L (10-20); BUN (Urea Nitrogen) 14 mg/dL (9.8-20.1); Calc. Creatinine Clearance 43 mL/min (70-130); Calcium 9.1 mg/dL (7.8-10.44); Carbon Dioxide 27 mmol/L (23-31); Chloride 103 mmol/L (98-107); Glucose 104 mg/dL (83-110); Potassium 3.6 mmol/L (3.5-5.1); Sodium 142 mmol/L (136-145)
[2021-11-26] MEDS ORDERED: NIFEdipine XL 90 MG TAB PO SCH (09:00)
[2021-11-26] MEDS ORDERED: cloNIDine 0.2mg/24 Hour PATCH TD SCH (09:00)
[2021-11-26] MEDS: Escitalopram Oxalate 10 mg Tablet PO SCH ×2 (09:03→21:23)
[2021-11-26] MEDS: Multivitamin W/ Minerals 1 TAB PO SCH (09:03)
[2021-11-26] MEDS: Cyanocobalamin (Vitamin B-12) 1,000 MCG TAB PO SCH (09:03)
[2021-11-26] MEDS: hydrALAZINE 25 MG TAB PO SCH ×3 (09:03→21:22)
[2021-11-26] MEDS: Aspirin Chewable 81 MG TAB PO SCH (09:03)
[2021-11-26] MEDS: Enoxaparin Sodium 40 MG/0.4 ML SYRINGE SC SCH (09:04)
[2021-11-26] MEDS: Lansoprazole 3 MG/ML ORAL SUSPENSION PER TUBE SCH (09:04)
[2021-11-26] MEDS: Amlodipine 10 MG TAB PO SCH (09:04)
[2021-11-26] MEDS: Metoprolol Tartrate 50 MG TAB PO SCH (09:04)
[2021-11-26] MEDS ORDERED: Minoxidil 2.5 MG TAB PO SCH (09:30)
[2021-11-26 14:54] VITALS: BMI 33.0
[2021-11-26 20:23] VITALS: TEMP 98.1
[2021-11-26] MEDS: Transdermal Patch Removal TOP SCH (21:23)
[2021-11-27] MEDS: Nitroglycerin 2% Ointment 1 INCH/1 GM Packet TOP SCH ×2 (05:30→14:03)
[2021-11-27 07:37] LABS: Anion Gap 14 mmol/L (10-20); BUN (Urea Nitrogen) 16 mg/dL (9.8-20.1); Calc. Creatinine Clearance 45 mL/min (70-130); Calcium 9.1 mg/dL (7.8-10.44); Carbon Dioxide 29 mmol/L (23-31); Chloride 102 mmol/L (98-107); Glucose 91 mg/dL (83-110); Potassium 3.8 mmol/L (3.5-5.1); Sodium 141 mmol/L (136-145)
[2021-11-27] MEDS ORDERED: Minoxidil 2.5 MG TAB PO SCH (09:00)
[2021-11-27] MEDS: Aspirin Chewable 81 MG TAB PO SCH (09:26)
[2021-11-27] MEDS: hydrALAZINE 25 MG TAB PO SCH ×2 (09:26→14:04)
[2021-11-27] MEDS: Escitalopram Oxalate 10 mg Tablet PO SCH (09:26)
[2021-11-27] MEDS: Cyanocobalamin (Vitamin B-12) 1,000 MCG TAB PO SCH (09:26)
[2021-11-27] MEDS: Enoxaparin Sodium 40 MG/0.4 ML SYRINGE SC SCH (09:26)
[2021-11-27] MEDS: Amlodipine 10 MG TAB PO SCH (09:26)
[2021-11-27] MEDS: Multivitamin W/ Minerals 1 TAB PO SCH (09:27)
[2021-11-27] MEDS: Lansoprazole 3 MG/ML ORAL SUSPENSION PER TUBE SCH (09:27)
[2021-11-27 14:07] VITALS: BP 127/60
== END 2021-11-27 15:38 | DRG 871 ==
LOC: ERS 12:25 → CCU 14:06 → T4-B 11-15 12:07
PROVIDERS: ADMIT Internal Medicine; ATTEND Internal Medicine
PROC: 5A1945Z Respiratory Ventilation, 24-96 Consecutive Hours (ICD-10-PCS; principal; 2021-11-10)
PROC: 0BH17EZ Insertion of Endotracheal Airway into Trachea, Via Natural or Artificial Opening (ICD-10-PCS; 2021-11-10)
PROC: 3E033XZ Introduction of Vasopressor into Peripheral Vein, Percutaneous Approach (ICD-10-PCS; 2021-11-10)
PROC: 3E03329 Introduction of Other Anti-infective into Peripheral Vein, Percutaneous Approach (ICD-10-PCS; 2021-11-10)
PROC: 0DH67UZ Insertion of Feeding Device into Stomach, Via Natural or Artificial Opening (ICD-10-PCS; 2021-11-10)
DX: A41.9 Sepsis, unspecified organism (principal); J69.0 Pneumonitis due to inhalation of food and vomit; G93.41 Metabolic encephalopathy; J96.01 Acute respiratory failure with hypoxia; R65.21 Severe sepsis with septic shock; J18.9 Pneumonia, unspecified organism; N17.9 Acute kidney failure, unspecified; E87.2 Acidosis; N30.00 Acute cystitis without hematuria; Z20.822 Contact with and (suspected) exposure to COVID-19; Z66 Do not resuscitate; F32.A Depression, unspecified; M54.9 Dorsalgia, unspecified; G89.29 Other chronic pain; M19.90 Unspecified osteoarthritis, unspecified site; E87.5 Hyperkalemia; E53.8 Deficiency of other specified B group vitamins; I12.9 Hypertensive chronic kidney disease with stage 1 through stage 4 chronic kidney disease, or unspecified chronic kidney disease; N18.30 Chronic kidney disease, stage 3 unspecified; B96.20 Unspecified Escherichia coli [E. coli] as the cause of diseases classified elsewhere; Z96.643 Presence of artificial hip joint, bilateral; E87.70 Fluid overload, unspecified; Z96.651 Presence of right artificial knee joint; E87.8 Other disorders of electrolyte and fluid balance, not elsewhere classified; Z88.5 Allergy status to narcotic agent; Z79.899 Other long term (current) drug therapy; Z78.1 Physical restraint status; Z79.82 Long term (current) use of aspirin; Z82.49 Family history of ischemic heart disease and other diseases of the circulatory system; Z83.6 Family history of other diseases of the respiratory system; Z81.8 Family history of other mental and behavioral disorders; Z98.890 Other specified postprocedural states
CPT/HCPCS: 31500; 36415; 36416; 36600; 51702; 70450; 70496; 70498; 70551; 71045; 74018; 74230; 80048; 80053; 81003; 81015; 82805; 83605; 83690; 83735; 83880; 84443; 84484; 85014; 85018; 85025; 85049; 85610; 85730; 87040; 87077; 87086; 87186; 93005; 94002; 94003; 94640; 96374; 96375; 96376; C9113; J0456; J0692; J0696; J1100; J1650; J1940; J2060; J2543; J2704; J3370; J3490; J7030; J7042; J7050; J7620; U0003; U0005

== ENCOUNTER 2022-03-02 07:03 | Inpatient (IN) | payer MEDICARE ==
[2022-03-02 08:12] LABS: #Basophils 0.1 thou/uL (0.0-0.2); #Eosinphils 0.1 thou/uL (0.0-0.7); #Lymphocytes 1.6 thou/uL (1.20-3.40); #Monocytes 0.6 thou/uL (0.11-0.59); #Neutrophils 7.6 thou/uL (1.40-6.50); %Basophils 0.6 % (0.0-1.0); %Eosinophils 0.9 % (0.0-10.0); %Lymphocytes 16.2 % (21.0-51.0); %Monocytes 6.2 % (0.0-10.0); %Neutrophils 76.2 % (42.0-75.0); Hemoglobin 11.4 g/dL (12.0-16.0); Mean Corpuscular HGB CONC 32.2 g/dL (32.0-36.0); Mean Corpuscular Volume 96.3 fL (78.0-98.0); Mean Platelet Volume 6.4 fL (7.4-10.4); Platelet Count 412 thou/uL (130-400); RBC Distribution Width 13.4 % (11.5-14.5); Red Blood Cell (RBC) Count 3.68 mill/uL (4.20-5.40)
[2022-03-02] MEDS ORDERED: Lorazepam (BATCHED) 2 MG/ML SYR ONE (08:19)
[2022-03-02 08:35] LABS: ALT (SGPT) 9 U/L (8-55); AST (SGOT) 13 U/L (5-34); Albumin 3.9 g/dL (3.4-4.8); Alkaline Phosphatase 98 U/L (40-110); Anion Gap 18 mmol/L (10-20); BUN (Urea Nitrogen) 25 mg/dL (9.8-20.1); Bilirubin, Total 0.3 mg/dL (0.2-1.2); Calc. Creatinine Clearance 0 mL/min (70-130); Calcium 9.1 mg/dL (7.8-10.44); Carbon Dioxide 20 mmol/L (23-31); Chloride 106 mmol/L (98-107); Estimated GFR 36; Globulin 3.3 g/dL (2.4-3.5); Glucose 106 mg/dL (83-110); Lipase 21 U/L (8-78); Potassium 3.7 mmol/L (3.5-5.1); Protein, Total 7.2 g/dL (5.8-8.1); Sodium 140 mmol/L (136-145)
[2022-03-02 09:32] LABS: Bilirubin Negative (Negative); Blood, Urine Negative (Negative); Clarity Clear (Clear); Glucose, Urine (Dipstick) Normal (Negative); Ketone, Urine Negative (Negative); Leukocyte Negative Leu/uL (Negative); Nitrite Negative (Negative); Protein, Urine (Dipstick) Negative (Neg-Trace); Specific Gravity, Urine 1.014 (1.002-1.036); Urobilinogen Normal mg/dL (Less than 2)
[2022-03-02] MEDS ORDERED: Acetaminophen 500 MG TAB ONE (10:07)
[2022-03-02] MEDS ORDERED: Aspirin Chewable 81 MG TAB ONE (10:07)
[2022-03-02] MEDS ORDERED: Cefepime 2 GM VIAL ONE (10:08)
[2022-03-02] MEDS ORDERED: Acetaminophen 325 MG TAB PO PRN (10:53)
[2022-03-02] MEDS ORDERED: Ondansetron PF 4 MG/2 ML Vial IVP PRN (10:53)
[2022-03-02 11:22] LABS: Troponin I Less than 0.010 ng/mL (< 0.028)
[2022-03-02 12:33] LABS: SARS-CoV-2 NAA Rapid Test Not Detected (NotDetected)
[2022-03-02 13:42] VITALS: BMI 30.5
[2022-03-02] MEDS ORDERED: Docusate 100 MG CAP PO PRN (14:13)
[2022-03-02] MEDS ORDERED: Polyethylene Glycol 3350 17 GM Packet PO PRN (14:13)
[2022-03-02 14:57] LABS: Troponin I 0.012 ng/mL (< 0.028)
[2022-03-02] MEDS: hydrALAZINE 25 MG TAB PO SCH ×2 (15:27→21:14)
[2022-03-02] MEDS ORDERED: Iopamidol-370 76% 500 ML 1 ML ONE (15:35)
[2022-03-02 17:06] LABS: Hemoglobin 10.3 g/dL (12.0-16.0)
[2022-03-02] MEDS: Famotidine 20 MG TAB PO SCH (21:14)
[2022-03-02] MEDS: Escitalopram Oxalate 10 mg Tablet PO SCH (21:14)
[2022-03-03] MEDS ORDERED: hydrALAZINE 20 MG/ML VIAL SLOW IVP PRN ×2 (03:30→03:31)
[2022-03-03 04:22] LABS: #Eosinphils 0.1 thou/uL (0.0-0.7); #Lymphocytes 1.5 thou/uL (1.20-3.40); #Monocytes 0.6 thou/uL (0.11-0.59); #Neutrophils 5.4 thou/uL (1.40-6.50); %Basophils 0.3 % (0.0-1.0); %Eosinophils 1.7 % (0.0-10.0); %Lymphocytes 19.4 % (21.0-51.0); %Monocytes 8.2 % (0.0-10.0); %Neutrophils 70.3 % (42.0-75.0); Hemoglobin 11.5 g/dL (12.0-16.0); Mean Corpuscular HGB CONC 31.8 g/dL (32.0-36.0); Mean Corpuscular Hemoglobin 30.8 pg (27.0-31.0); Mean Corpuscular Volume 96.8 fL (78.0-98.0); Mean Platelet Volume 6.6 fL (7.4-10.4); Platelet Count 357 thou/uL (130-400); RBC Distribution Width 13.7 % (11.5-14.5); Red Blood Cell (RBC) Count 3.74 mill/uL (4.20-5.40); White Blood Cell (WBC) Count 7.7 thou/uL (4.8-10.8)
[2022-03-03 04:35] LABS: Anion Gap 16 mmol/L (10-20); BUN (Urea Nitrogen) 22 mg/dL (9.8-20.1); Calc. Creatinine Clearance 35 mL/min (70-130); Calcium 9.3 mg/dL (7.8-10.44); Carbon Dioxide 18 mmol/L (23-31); Chloride 107 mmol/L (98-107); Estimated GFR 35; Glucose 93 mg/dL (83-110); Sodium 136 mmol/L (136-145)
[2022-03-03] MEDS: Famotidine 20 MG TAB PO SCH (08:52)
[2022-03-03] MEDS: hydrALAZINE 25 MG TAB PO SCH ×3 (08:52→20:50)
[2022-03-03] MEDS: Escitalopram Oxalate 10 mg Tablet PO SCH ×2 (08:52→20:50)
[2022-03-03] MEDS: Amlodipine 10 MG TAB PO SCH (08:52)
[2022-03-03] MEDS ORDERED: Enoxaparin Sodium 40 MG/0.4 ML SYRINGE SC SCH (09:00)
[2022-03-03] MEDS ORDERED: Aspirin 81 mg Enteric Coated Tablet PO SCH (09:00)
[2022-03-03] MEDS: Polyethylene Glycol 3350 17 GM Packet PO SCH (20:49)
[2022-03-03] MEDS ORDERED: Saccharomyces boulardii 250 MG CAP PO SCH (21:00)
[2022-03-03] MEDS ORDERED: Bisacodyl 10 MG SUPP PR SCH (21:00)
[2022-03-04 04:56] LABS: #Eosinphils 0.2 thou/uL (0.0-0.7); #Lymphocytes 1.2 thou/uL (1.20-3.40); #Monocytes 0.7 thou/uL (0.11-0.59); %Basophils 0.1 % (0.0-1.0); %Eosinophils 1.9 % (0.0-10.0); %Lymphocytes 12.7 % (21.0-51.0); %Neutrophils 77.3 % (42.0-75.0); Hemoglobin 11.4 g/dL (12.0-16.0); Mean Corpuscular HGB CONC 32.6 g/dL (32.0-36.0); Mean Corpuscular Hemoglobin 31.2 pg (27.0-31.0); Mean Corpuscular Volume 95.7 fL (78.0-98.0); Mean Platelet Volume 6.5 fL (7.4-10.4); Platelet Count 356 thou/uL (130-400); RBC Distribution Width 13.8 % (11.5-14.5); Red Blood Cell (RBC) Count 3.65 mill/uL (4.20-5.40)
[2022-03-04 05:04] LABS: Anion Gap 17 mmol/L (10-20); BUN (Urea Nitrogen) 27 mg/dL (9.8-20.1); CRP (Inflammatory) 0.56 mg/dL (= or < 0.5); Calc. Creatinine Clearance 29 mL/min (70-130); Calcium 9.3 mg/dL (7.8-10.44); Carbon Dioxide 17 mmol/L (23-31); Chloride 105 mmol/L (98-107); Estimated GFR 28; Glucose 106 mg/dL (83-110); Magnesium 1.9 mg/dL (1.6-2.6); Potassium 4.5 mmol/L (3.5-5.1); Sodium 134 mmol/L (136-145)
[2022-03-04] MEDS: hydrALAZINE 25 MG TAB PO SCH ×2 (08:39→15:07)
[2022-03-04] MEDS: Amlodipine 10 MG TAB PO SCH (08:39)
[2022-03-04] MEDS: Escitalopram Oxalate 10 mg Tablet PO SCH (08:40)
[2022-03-04] MEDS: Polyethylene Glycol 3350 17 GM Packet PO SCH (08:40)
[2022-03-04] MEDS ORDERED: Famotidine 20 MG TAB PO SCH (09:00)
[2022-03-04] MEDS ORDERED: Enoxaparin Sodium 30 MG/0.3 ML SYRINGE SC SCH (09:00)
[2022-03-04] MEDS ORDERED: Electrolyte Replacement Protocol 1 EACH FS SCH (10:00)
[2022-03-04] MEDS ORDERED: Aspirin 81 mg Enteric Coated Tablet PO SCH (10:00)
[2022-03-04] MEDS ORDERED: Sodium Chloride 0.9% 1,000 ML IV SCH (10:00)
[2022-03-04 10:34] LABS: Lactic Acid 2.6 mmol/L (0.5-2.2)
[2022-03-04] MEDS ORDERED: Magnesium 2 GM/50 ML(in water) 2 GM in Premix Bag 1 BAG IVPB SCH (12:00)
[2022-03-04 12:47] VITALS: TEMP 97.5
[2022-03-04] MEDS ORDERED: metroNIDAZOLE 500 MG in Premix Bag 1 BAG IVPB SCH (14:00)
[2022-03-04 15:09] VITALS: BP 165/75
[2022-03-04] MEDS ORDERED: Heparin 5,000 UNITS/ML VIAL SC SCH (21:00)
[2022-03-05] MEDS ORDERED: Polyethylene Glycol 3350 17 GM Packet PO SCH (09:00)
[2022-03-09] MEDS ORDERED: cloNIDine 0.2mg/24 Hour PATCH TD SCH (09:00)
== END 2022-03-04 16:09 | disposition left against medical advice (07) | DRG 204 ==
LOC: ERS 07:03 → 2NO 10:21
PROVIDERS: ADMIT Internal Medicine; ATTEND Internal Medicine
DX: R06.02 Shortness of breath (principal); Z66 Do not resuscitate; Z20.822 Contact with and (suspected) exposure to COVID-19; N17.9 Acute kidney failure, unspecified; E87.2 Acidosis; R10.9 Unspecified abdominal pain; G89.29 Other chronic pain; M54.9 Dorsalgia, unspecified; I12.9 Hypertensive chronic kidney disease with stage 1 through stage 4 chronic kidney disease, or unspecified chronic kidney disease; N18.30 Chronic kidney disease, stage 3 unspecified; E86.0 Dehydration; D53.9 Nutritional anemia, unspecified; M19.90 Unspecified osteoarthritis, unspecified site; Z96.643 Presence of artificial hip joint, bilateral; Z96.651 Presence of right artificial knee joint; R19.5 Other fecal abnormalities; M47.819 Spondylosis without myelopathy or radiculopathy, site unspecified; E66.9 Obesity, unspecified; F41.9 Anxiety disorder, unspecified; T45.4X5A Adverse effect of iron and its compounds, initial encounter; Z53.29 Procedure and treatment not carried out because of patient's decision for other reasons; Z68.30 Body mass index [BMI] 30.0-30.9, adult; Z88.6 Allergy status to analgesic agent; Z88.5 Allergy status to narcotic agent; Z88.8 Allergy status to other drugs, medicaments and biological substances; Z79.899 Other long term (current) drug therapy; Z79.82 Long term (current) use of aspirin; Z82.49 Family history of ischemic heart disease and other diseases of the circulatory system; Z82.0 Family history of epilepsy and other diseases of the nervous system
CPT/HCPCS: 36415; 51701; 71045; 71046; 74177; 80048; 80053; 81003; 83605; 83690; 83735; 84145; 84484; 85025; 86140; 93005; 96361; 96365; 96367; 96375; J0360; J0692; J1650; J1956; J2060; J3475; J7050; Q9967; U0002

== ENCOUNTER 2022-04-28 12:33 | Inpatient (IN) | payer MEDICARE ==
[2022-04-28 13:44] LABS: #Eosinphils 0.1 thou/uL (0.0-0.7); #Lymphocytes 1.4 thou/uL (1.20-3.40); #Monocytes 0.5 thou/uL (0.11-0.59); #Neutrophils 6.5 thou/uL (1.40-6.50); %Basophils 0.6 % (0.0-1.0); %Eosinophils 1.3 % (0.0-10.0); %Lymphocytes 16.2 % (21.0-51.0); %Monocytes 5.9 % (0.0-10.0); Hemoglobin 11.5 g/dL (12.0-16.0); Mean Corpuscular HGB CONC 32.4 g/dL (32.0-36.0); Mean Corpuscular Hemoglobin 31.2 pg (27.0-31.0); Mean Corpuscular Volume 96.4 fL (78.0-98.0); Mean Platelet Volume 6.5 fL (7.4-10.4); Platelet Count 408 thou/uL (130-400); RBC Distribution Width 14.9 % (11.5-14.5); Red Blood Cell (RBC) Count 3.69 mill/uL (4.20-5.40); White Blood Cell (WBC) Count 8.6 thou/uL (4.8-10.8)
[2022-04-28] MEDS ORDERED: Iopamidol-370 76% 500 ML 1 ML ONE (13:57)
[2022-04-28 14:17] LABS: ALT (SGPT) 8 U/L (8-55); AST (SGOT) 16 U/L (5-34); Alkaline Phosphatase 96 U/L (40-110); Anion Gap 16 mmol/L (10-20); BUN (Urea Nitrogen) 23 mg/dL (9.8-20.1); Bilirubin, Total 0.3 mg/dL (0.2-1.2); CK (CPK) 44 U/L (29-168); Calc. Creatinine Clearance 0 mL/min (70-130); Calcium 9.9 mg/dL (7.8-10.44); Carbon Dioxide 22 mmol/L (23-31); Chloride 105 mmol/L (98-107); Estimated GFR 41; Globulin 3.6 g/dL (2.4-3.5); Glucose 97 mg/dL (83-110); Lipase 13 U/L (8-78); Magnesium 1.9 mg/dL (1.6-2.6); Potassium 4.8 mmol/L (3.5-5.1); Protein, Total 7.6 g/dL (5.8-8.1); Sodium 138 mmol/L (136-145)
[2022-04-28] MEDS ORDERED: Furosemide 40 MG/4 ML VIAL ONE (15:12)
[2022-04-28] MEDS ORDERED: Acetaminophen 325 MG TAB PO PRN (15:45)
[2022-04-28] MEDS ORDERED: Senokot S 8.6-50 MG TAB PO PRN (15:45)
[2022-04-28] MEDS ORDERED: Ondansetron PF 4 MG/2 ML Vial IVP PRN (15:45)
[2022-04-28] MEDS ORDERED: Ondansetron ODT 4 MG TAB PO PRN (15:45)
[2022-04-28 17:06] LABS: Bacteria/HPF None Seen HPF (None Seen); Bilirubin Negative (Negative); Blood, Urine Negative (Negative); Clarity Clear (Clear); Glucose, Urine (Dipstick) Normal (Negative); Ketone, Urine Negative (Negative); Leukocyte 75 Leu/uL (Negative); Nitrite Negative (Negative); Protein, Urine (Dipstick) Negative (Neg-Trace); RBC/HPF 0-3 HPF (0-3); Specific Gravity, Urine 1.009 (1.002-1.036); Squamous Epithelial 0-3 HPF (0-3); Urobilinogen Normal mg/dL (Less than 2); pH, Urine 7.5 (5.0-9.0)
[2022-04-28 20:03] LABS: SARS-CoV-2 NAA Rapid Test Not Detected (NotDetected)
[2022-04-28 20:34] VITALS: BMI 31.4
[2022-04-28 22:52] LABS: Bilirubin Negative (Negative); Blood, Urine Trace (Negative); Clarity Turbid (Clear); Glucose, Urine (Dipstick) Normal (Negative); Ketone, Urine Negative (Negative); Leukocyte 500 Leu/uL (Negative); Nitrite Negative (Negative); Protein, Urine (Dipstick) Negative (Neg-Trace); Specific Gravity, Urine 1.014 (1.002-1.036); Squamous Epithelial None Seen HPF (0-3); Urobilinogen Normal mg/dL (Less than 2); WBC/HPF Greater than 50 HPF (0-3)
[2022-04-28 22:56] LABS: Bacteria/HPF 1+ HPF (None Seen)
[2022-04-29] MEDS: cefTRIAXone\\ROCEPHIN 1 GM in Sodium Chloride 0.9% 100 ML IVPB SCH ×2 (00:32→23:32)
[2022-04-29 05:19] LABS: #Eosinphils 0.1 thou/uL (0.0-0.7); #Lymphocytes 1.4 thou/uL (1.20-3.40); #Monocytes 0.7 thou/uL (0.11-0.59); #Neutrophils 6.8 thou/uL (1.40-6.50); %Basophils 0.3 % (0.0-1.0); %Eosinophils 1.1 % (0.0-10.0); %Lymphocytes 15.5 % (21.0-51.0); %Monocytes 7.6 % (0.0-10.0); %Neutrophils 75.5 % (42.0-75.0); Hemoglobin 11.2 g/dL (12.0-16.0); Mean Corpuscular HGB CONC 32.5 g/dL (32.0-36.0); Mean Corpuscular Hemoglobin 31.7 pg (27.0-31.0); Mean Corpuscular Volume 97.6 fL (78.0-98.0); Mean Platelet Volume 6.7 fL (7.4-10.4); Platelet Count 413 thou/uL (130-400); Red Blood Cell (RBC) Count 3.54 mill/uL (4.20-5.40)
[2022-04-29 05:21] LABS: Anion Gap 16 mmol/L (10-20); BUN (Urea Nitrogen) 27 mg/dL (9.8-20.1); Calc. Creatinine Clearance 33 mL/min (70-130); Calcium 9.4 mg/dL (7.8-10.44); Carbon Dioxide 23 mmol/L (23-31); Chloride 104 mmol/L (98-107); Estimated GFR 33; Glucose 109 mg/dL (83-110); Potassium 4.4 mmol/L (3.5-5.1); Sodium 139 mmol/L (136-145)
[2022-04-29] MEDS ORDERED: Furosemide 40 MG/4 ML VIAL SLOW IVP SCH (09:00)
[2022-04-29] MEDS ORDERED: Lisinopril 5 MG TAB PO PRN (09:51)
[2022-04-29] MEDS ORDERED: Lisinopril 5 MG TAB PO SCH (10:00)
[2022-04-29] MEDS ORDERED: Escitalopram Oxalate 10 mg Tablet PO SCH ×2 (10:00→21:00)
[2022-04-29] MEDS ORDERED: Escitalopram Oxalate 20 mg Tablet PO SCH (10:00)
[2022-04-29 10:59] LABS: Troponin I 0.031 ng/mL (< 0.028)
[2022-04-30] MEDS: hydrALAZINE 20 MG/ML VIAL SLOW IVP PRN (03:25)
[2022-04-30] MEDS ORDERED: Sodium Chloride 0.65% Nasal 44 ML BOT EA NARE PRN (03:55)
[2022-04-30] MEDS ORDERED: guaiFENesin ER 600 MG TAB PO PRN (03:55)
[2022-04-30 04:53] LABS: #Basophils 0.1 thou/uL (0.0-0.2); #Eosinphils 0.1 thou/uL (0.0-0.7); #Lymphocytes 1.5 thou/uL (1.20-3.40); #Monocytes 0.7 thou/uL (0.11-0.59); #Neutrophils 5.3 thou/uL (1.40-6.50); %Basophils 0.9 % (0.0-1.0); %Eosinophils 1.9 % (0.0-10.0); %Lymphocytes 19.4 % (21.0-51.0); %Monocytes 9.5 % (0.0-10.0); %Neutrophils 68.3 % (42.0-75.0); Mean Corpuscular HGB CONC 32.1 g/dL (32.0-36.0); Mean Corpuscular Hemoglobin 31.8 pg (27.0-31.0); Mean Corpuscular Volume 99.2 fL (78.0-98.0); Mean Platelet Volume 6.6 fL (7.4-10.4); Platelet Count 401 thou/uL (130-400); RBC Distribution Width 15.2 % (11.5-14.5); Red Blood Cell (RBC) Count 4.07 mill/uL (4.20-5.40); White Blood Cell (WBC) Count 7.7 thou/uL (4.8-10.8)
[2022-04-30] MEDS ORDERED: Albuterol Sulfate 2.5 mg/3 ml Neb NEB PRN (05:56)
[2022-04-30 07:48] LABS: Anion Gap 20 mmol/L (10-20); BUN (Urea Nitrogen) 40 mg/dL (9.8-20.1); Calc. Creatinine Clearance 27 mL/min (70-130); Calcium 9.8 mg/dL (7.8-10.44); Carbon Dioxide 20 mmol/L (23-31); Chloride 103 mmol/L (98-107); Estimated GFR 26; Glucose 104 mg/dL (83-110); Potassium 3.9 mmol/L (3.5-5.1); Sodium 139 mmol/L (136-145)
[2022-04-30] MEDS ORDERED: cloNIDine 0.2mg/24 Hour PATCH TD SCH (09:00)
[2022-04-30] MEDS: Floranex 1 GM Packet PO SCH (10:22)
[2022-04-30] MEDS: Cyanocobalamin (Vitamin B-12) 1,000 MCG TAB PO SCH (10:23)
[2022-04-30] MEDS: Escitalopram Oxalate 10 mg Tablet PO SCH (10:23)
[2022-04-30] MEDS: Empagliflozin 10 MG TAB PO SCH (10:23)
[2022-04-30] MEDS: Aspirin 81 mg Enteric Coated Tablet PO SCH (10:23)
[2022-04-30] MEDS ORDERED: traZODone HCl 50 MG TAB PO PRN (13:15)
[2022-04-30] MEDS ORDERED: Acetaminophen 500 MG TAB PO SCH (13:15)
[2022-04-30] MEDS: Carvedilol 3.125 MG TAB PO SCH (21:05)
[2022-05-01] MEDS: cefTRIAXone\\ROCEPHIN 1 GM in Sodium Chloride 0.9% 100 ML IVPB SCH ×2 (00:05→22:56)
[2022-05-01 04:40] LABS: Anion Gap 18 mmol/L (10-20); BUN (Urea Nitrogen) 45 mg/dL (9.8-20.1); Calc. Creatinine Clearance 32 mL/min (70-130); Calcium 9.1 mg/dL (7.8-10.44); Carbon Dioxide 16 mmol/L (23-31); Chloride 108 mmol/L (98-107); Estimated GFR 31; Glucose 110 mg/dL (83-110); Sodium 137 mmol/L (136-145)
[2022-05-01 05:21] LABS: #Eosinphils 0.2 thou/uL (0.0-0.7); #Lymphocytes 1.2 thou/uL (1.20-3.40); #Monocytes 0.8 thou/uL (0.11-0.59); #Neutrophils 5.2 thou/uL (1.40-6.50); %Basophils 0.4 % (0.0-1.0); %Lymphocytes 16.1 % (21.0-51.0); %Monocytes 10.2 % (0.0-10.0); %Neutrophils 70.4 % (42.0-75.0); Hemoglobin 10.8 g/dL (12.0-16.0); Mean Corpuscular HGB CONC 31.9 g/dL (32.0-36.0); Mean Corpuscular Hemoglobin 31.3 pg (27.0-31.0); Mean Corpuscular Volume 98.1 fL (78.0-98.0); Mean Platelet Volume 6.6 fL (7.4-10.4); Platelet Count 450 thou/uL (130-400); RBC Distribution Width 14.9 % (11.5-14.5); Red Blood Cell (RBC) Count 3.45 mill/uL (4.20-5.40); White Blood Cell (WBC) Count 7.4 thou/uL (4.8-10.8)
[2022-05-01] MEDS: Empagliflozin 10 MG TAB PO SCH (08:36)
[2022-05-01] MEDS: Floranex 1 GM Packet PO SCH (08:36)
[2022-05-01] MEDS: Cyanocobalamin (Vitamin B-12) 1,000 MCG TAB PO SCH (08:36)
[2022-05-01] MEDS: Carvedilol 3.125 MG TAB PO SCH (08:36)
[2022-05-01] MEDS: Aspirin 81 mg Enteric Coated Tablet PO SCH (08:36)
[2022-05-01] MEDS: Escitalopram Oxalate 10 mg Tablet PO SCH (08:37)
[2022-05-01] MEDS: Fluticasone Propionate Nasal Spray 16 gm Bottle NASAL SCH (08:37)
[2022-05-01] MEDS: Carvedilol 6.25 MG TAB PO SCH (21:15)
[2022-05-02 04:10] LABS: #Eosinphils 0.3 thou/uL (0.0-0.7); #Lymphocytes 1.4 thou/uL (1.20-3.40); #Monocytes 0.7 thou/uL (0.11-0.59); #Neutrophils 5.1 thou/uL (1.40-6.50); %Basophils 0.6 % (0.0-1.0); %Eosinophils 3.9 % (0.0-10.0); %Lymphocytes 18.2 % (21.0-51.0); %Monocytes 9.9 % (0.0-10.0); %Neutrophils 67.5 % (42.0-75.0); Hemoglobin 10.8 g/dL (12.0-16.0); Mean Corpuscular HGB CONC 31.2 g/dL (32.0-36.0); Mean Corpuscular Volume 99.6 fL (78.0-98.0); Mean Platelet Volume 6.6 fL (7.4-10.4); Platelet Count 431 thou/uL (130-400); Red Blood Cell (RBC) Count 3.49 mill/uL (4.20-5.40); White Blood Cell (WBC) Count 7.5 thou/uL (4.8-10.8)
[2022-05-02 04:22] LABS: Anion Gap 15 mmol/L (10-20); BUN (Urea Nitrogen) 53 mg/dL (9.8-20.1); Calc. Creatinine Clearance 32 mL/min (70-130); Calcium 9.5 mg/dL (7.8-10.44); Carbon Dioxide 22 mmol/L (23-31); Chloride 107 mmol/L (98-107); Estimated GFR 31; Glucose 112 mg/dL (83-110); Potassium 4.6 mmol/L (3.5-5.1); Sodium 139 mmol/L (136-145)
[2022-05-02 08:04] VITALS: TEMP 97.8
[2022-05-02] MEDS: hydrALAZINE 20 MG/ML VIAL SLOW IVP PRN (08:15)
[2022-05-02] MEDS: Cyanocobalamin (Vitamin B-12) 1,000 MCG TAB PO SCH (08:56)
[2022-05-02] MEDS: Carvedilol 6.25 MG TAB PO SCH (08:56)
[2022-05-02] MEDS: Escitalopram Oxalate 10 mg Tablet PO SCH (08:57)
[2022-05-02] MEDS: Aspirin 81 mg Enteric Coated Tablet PO SCH (08:57)
[2022-05-02] MEDS: Fluticasone Propionate Nasal Spray 16 gm Bottle NASAL SCH (08:57)
[2022-05-02] MEDS: Empagliflozin 10 MG TAB PO SCH (08:57)
[2022-05-02 08:58] VITALS: BP 198/100
[2022-05-02] MEDS: Floranex 1 GM Packet PO SCH (08:58)
[2022-05-06] MEDS ORDERED: cloNIDine 0.2mg/24 Hour PATCH TD SCH (09:00)
== END 2022-05-02 11:30 | disposition home or self-care (01) | DRG 291 ==
LOC: ERS 12:33 → ERHOLD 15:10 → 2NO 19:40
PROVIDERS: ADMIT Internal Medicine; ATTEND Internal Medicine
DX: I13.0 Hypertensive heart and chronic kidney disease with heart failure and stage 1 through stage 4 chronic kidney disease, or unspecified chronic kidney disease (principal); I50.31 Acute diastolic (congestive) heart failure; N17.9 Acute kidney failure, unspecified; N39.0 Urinary tract infection, site not specified; E78.5 Hyperlipidemia, unspecified; M19.90 Unspecified osteoarthritis, unspecified site; F41.9 Anxiety disorder, unspecified; N18.32 Chronic kidney disease, stage 3b; D63.1 Anemia in chronic kidney disease; E66.9 Obesity, unspecified; Z66 Do not resuscitate; F03.90 Unspecified dementia, unspecified severity, without behavioral disturbance, psychotic disturbance, mood disturbance, and anxiety; G89.29 Other chronic pain; M54.9 Dorsalgia, unspecified; Z20.822 Contact with and (suspected) exposure to COVID-19; Z88.5 Allergy status to narcotic agent; Z88.8 Allergy status to other drugs, medicaments and biological substances; Z79.82 Long term (current) use of aspirin; Z79.899 Other long term (current) drug therapy; Z90.49 Acquired absence of other specified parts of digestive tract; Z98.890 Other specified postprocedural states; Z68.31 Body mass index [BMI] 31.0-31.9, adult
CPT/HCPCS: 36415; 71045; 71260; 74177; 80048; 80053; 81003; 81015; 82550; 83605; 83690; 83735; 83880; 84100; 84443; 84484; 85025; 87077; 87086; 87186; 87804; 93005; 93306; 94640; 96374; J0360; J0696; J1940; J3490; J7611; Q9967; U0002

== ENCOUNTER 2022-06-28 17:49 | Inpatient (IN) | payer MEDICARE ==
[2022-06-28] MEDS ORDERED: Acetaminophen 325 MG TAB ONE (18:32)
[2022-06-28 18:37] LABS: #Eosinphils 0.1 thou/uL (0.0-0.7); #Lymphocytes 0.8 thou/uL (1.20-3.40); #Monocytes 0.8 thou/uL (0.11-0.59); %Basophils 0.2 % (0.0-1.0); %Eosinophils 1.3 % (0.0-10.0); %Neutrophils 82.5 % (42.0-75.0); Hemoglobin 11.8 g/dL (12.0-16.0); Mean Corpuscular HGB CONC 32.1 g/dL (32.0-36.0); Mean Corpuscular Hemoglobin 32.5 pg (27.0-31.0); Mean Platelet Volume 6.3 fL (7.4-10.4); Platelet Count 312 10x3/uL (130-400); RBC Distribution Width 14.3 % (11.5-14.5); Red Blood Cell (RBC) Count 3.65 mill/uL (4.20-5.40); White Blood Cell (WBC) Count 9.7 10x3/uL (4.8-10.8)
[2022-06-28 18:57] LABS: ALT (SGPT) 10 U/L (8-55); AST (SGOT) 16 U/L (5-34); Albumin 3.8 g/dL (3.4-4.8); Alkaline Phosphatase 92 U/L (40-110); Anion Gap 14 mmol/L (10-20); BUN (Urea Nitrogen) 20 mg/dL (9.8-20.1); Bilirubin, Total 0.3 mg/dL (0.2-1.2); Calc. Creatinine Clearance 0 mL/min (70-130); Carbon Dioxide 25 mmol/L (23-31); Chloride 102 mmol/L (98-107); Estimated GFR 37; Globulin 3.6 g/dL (2.4-3.5); Glucose 109 mg/dL (83-110); Potassium 4.8 mmol/L (3.5-5.1); Protein, Total 7.4 g/dL (5.8-8.1); Sodium 136 mmol/L (136-145)
[2022-06-28 20:02] LABS: SARS-CoV-2 NAA Rapid Test Not Detected (NotDetected)
[2022-06-28] MEDS ORDERED: Senokot S 8.6-50 MG TAB PO PRN (21:35)
[2022-06-28] MEDS ORDERED: Acetaminophen 325 MG TAB PO PRN (21:35)
[2022-06-28] MEDS ORDERED: Ondansetron ODT 4 MG TAB PO PRN (21:35)
[2022-06-28 23:20] VITALS: BMI 28.3
[2022-06-29 07:15] LABS: #Eosinphils 0.2 thou/uL (0.0-0.7); #Monocytes 0.8 thou/uL (0.11-0.59); #Neutrophils 5.1 thou/uL (1.40-6.50); %Eosinophils 2.6 % (0.0-10.0); %Neutrophils 72.4 % (42.0-75.0); Hemoglobin 10.7 g/dL (12.0-16.0); Mean Corpuscular Hemoglobin 32.9 pg (27.0-31.0); Mean Platelet Volume 6.4 fL (7.4-10.4); Platelet Count 284 10x3/uL (130-400); RBC Distribution Width 14.1 % (11.5-14.5); Red Blood Cell (RBC) Count 3.25 mill/uL (4.20-5.40)
[2022-06-29 07:36] LABS: Anion Gap 11 mmol/L (10-20); BUN (Urea Nitrogen) 25 mg/dL (9.8-20.1); Calc. Creatinine Clearance 35 mL/min (70-130); Calcium 8.7 mg/dL (7.8-10.44); Carbon Dioxide 26 mmol/L (23-31); Chloride 103 mmol/L (98-107); Estimated GFR 38; Glucose 100 mg/dL (83-110); Potassium 4.3 mmol/L (3.5-5.1); Sodium 136 mmol/L (136-145)
[2022-06-29] MEDS: Escitalopram Oxalate 20 mg Tablet PO SCH ×2 (08:19→21:49)
[2022-06-29] MEDS: Carvedilol 6.25 MG TAB PO SCH ×2 (08:19→21:49)
[2022-06-29] MEDS: Aspirin 81 mg Enteric Coated Tablet PO SCH (08:20)
[2022-06-29] MEDS: methylPREDNISolone Sod Succ 40 MG VIAL IVP SCH (08:20)
[2022-06-29] MEDS: Famotidine 20 MG TAB PO SCH (08:20)
[2022-06-29] MEDS: Empagliflozin 10 MG TAB PO SCH (10:45)
[2022-06-30 08:08] VITALS: BP 137/80; TEMP 97.7
[2022-06-30] MEDS: Famotidine 20 MG TAB PO SCH (09:22)
[2022-06-30] MEDS: Carvedilol 6.25 MG TAB PO SCH (09:22)
[2022-06-30] MEDS: Aspirin 81 mg Enteric Coated Tablet PO SCH (09:22)
[2022-06-30] MEDS: methylPREDNISolone Sod Succ 40 MG VIAL IVP SCH (09:22)
[2022-06-30] MEDS: Escitalopram Oxalate 20 mg Tablet PO SCH (09:22)
[2022-06-30] MEDS: Empagliflozin 10 MG TAB PO SCH (09:25)
[2022-07-02] MEDS ORDERED: FLU VACC QS2022-23(65YR UP)/PF 240 MCG/0.7 ML SYRINGE IM ONE (09:00)
[2022-07-05] MEDS ORDERED: cloNIDine 0.2mg/24 Hour PATCH TD SCH (09:00)
== END 2022-06-30 11:43 | disposition home or self-care (01) | DRG 189 ==
LOC: ERS 17:49 → T4-A 20:36 → OBSVTOIN 06-29 16:03
PROVIDERS: ADMIT Student in an Organized Health Care Education/Training Program; ATTEND Internal Medicine
DX: J96.01 Acute respiratory failure with hypoxia (principal); I50.32 Chronic diastolic (congestive) heart failure; I13.0 Hypertensive heart and chronic kidney disease with heart failure and stage 1 through stage 4 chronic kidney disease, or unspecified chronic kidney disease; N17.9 Acute kidney failure, unspecified; J20.5 Acute bronchitis due to respiratory syncytial virus; N18.30 Chronic kidney disease, stage 3 unspecified; R53.81 Other malaise; F41.9 Anxiety disorder, unspecified; E78.5 Hyperlipidemia, unspecified; M19.90 Unspecified osteoarthritis, unspecified site; Z20.822 Contact with and (suspected) exposure to COVID-19; Z88.6 Allergy status to analgesic agent; Z88.5 Allergy status to narcotic agent; Z88.8 Allergy status to other drugs, medicaments and biological substances; Z79.82 Long term (current) use of aspirin; Z79.899 Other long term (current) drug therapy; Z90.49 Acquired absence of other specified parts of digestive tract; Z87.440 Personal history of urinary (tract) infections
CPT/HCPCS: 36415; 71045; 80048; 80053; 83605; 83880; 84484; 85025; 87040; 93005; 94640; G0378; J2920; J7620

== ENCOUNTER 2023-03-21 03:45 | Emergency (ER) | payer MEDICARE ==
[2023-03-21 05:30] LABS: #Eosinphils 0.2 thou/uL (0.0-0.7); #Monocytes 0.8 thou/uL (0.11-0.59); #Neutrophils 3.7 thou/uL (1.40-6.50); %Basophils 0.5 % (0.0-1.0); %Eosinophils 3.3 % (0.0-10.0); %Lymphocytes 21.8 % (21.0-51.0); %Neutrophils 61.1 % (42.0-75.0); Hematocrit 33.8 % (36.0-47.0); Hemoglobin 11.1 g/dL (12.0-16.0); Mean Corpuscular HGB CONC 32.8 g/dL (32.0-36.0); Mean Corpuscular Hemoglobin 31.3 pg (27.0-31.0); Mean Corpuscular Volume 95.2 fl (78.0-98.0); Mean Platelet Volume 9.1 fL (7.4-10.4); Platelet Count 347 10x3/uL (130-400); RBC Distribution Width 14.6 % (11.5-14.5); Red Blood Cell (RBC) Count 3.55 mill/uL (4.20-5.40)
[2023-03-21 05:54] LABS: ALT (SGPT) 10 U/L (8-55); AST (SGOT) 14 U/L (5-34); Albumin 3.9 g/dL (3.4-4.8); Alkaline Phosphatase 105 U/L (40-110); Anion Gap 14 mmol/L (10-20); BUN (Urea Nitrogen) 17 mg/dL (9.8-20.1); Bilirubin, Total 0.2 mg/dL (0.2-1.2); Calc. Creatinine Clearance 0 mL/min (70-130); Calcium 9.5 mg/dL (7.8-10.44); Carbon Dioxide 26 mmol/L (23-31); Chloride 102 mmol/L (98-107); Estimated GFR 35; Globulin 3.3 g/dL (2.4-3.5); Glucose 105 mg/dL (83-110); Lipase 12 U/L (8-78); Protein, Total 7.2 g/dL (5.8-8.1); Sodium 138 mmol/L (136-145)
[2023-03-21] MEDS ORDERED: Iopamidol-370 76% 500 ML MDV (1 ML CHARGE) ONE (11:46)
== END 2023-03-21 08:14 | disposition home or self-care (01) ==
LOC: ERS 03:45
DX: R19.7 Diarrhea, unspecified (principal); K59.00 Constipation, unspecified
CPT/HCPCS: 74177; 80053; 83690; 85025; Q9967